=== PATIENT | female | born 1980 | race African-American/Black ===

== ENCOUNTER 2018-01-16 17:03 | Emergency (ER) | payer MEDICARE, MEDICAID ==
[2018-01-16] MEDS ORDERED: Ketorolac Tromethamine 60 MG/2 ML VIAL ONE (18:17)
[2018-01-16] MEDS ORDERED: hydrOXYzine 25 MG TAB ONE (18:17)
--- NOTE | 2018-01-16 20:09 | RAD ---
LEFT ANKLE TWO VIEWS: Comparison: 10-16-16 FINDINGS: There appears to be loosening and complicated process involving the internal fixation hardware. There is bony remodeling and periosteal reaction. Soft tissue swelling is noted. An infected joint cannot be excluded. There is presumed chronic change involving the naviculocuneiform articulation. IMPRESSION: Possible infected joint. POS: PPP
[2018-01-16 20:13] LABS: #Basophils 0.1 thou/uL (0.0-0.2); #Lymphocytes 2.3 thou/uL (1.20-3.40); #Monocytes 0.2 thou/uL (0.11-0.59); #Neutrophils 4.2 thou/uL (1.40-6.50); %Basophils 0.8 % (0.0-1.0); %Eosinophils 0.4 % (0.0-10.0); %Lymphocytes 33.4 % (21.0-51.0); %Monocytes 3.6 % (0.0-10.0); %Neutrophils 61.8 % (42.0-75.0); Hemoglobin 11.3 g/dL (12.0-16.0); Mean Corpuscular HGB CONC 31.7 g/dL (32.0-36.0); Mean Corpuscular Hemoglobin 24.7 pg (27.0-31.0); Mean Corpuscular Volume 77.9 fL (78.0-98.0); Mean Platelet Volume 5.8 fL (7.4-10.4); Platelet Count 175 thou/uL (130-400); RBC Distribution Width 18.1 % (11.5-14.5); White Blood Cell (WBC) Count 6.7 thou/uL (4.8-10.8)
== END 2018-01-16 20:41 | disposition home or self-care (01) ==
LOC: ERS 17:03
DX: F41.9 Anxiety disorder, unspecified (principal); M25.572 Pain in left ankle and joints of left foot; I10 Essential (primary) hypertension; F17.210 Nicotine dependence, cigarettes, uncomplicated; Z79.899 Other long term (current) drug therapy
CPT/HCPCS: 36415; 85025; 85652; 86140; J1885

== ENCOUNTER 2018-03-11 19:32 | Emergency (ER) | payer MEDICARE, MEDICAID ==
[2018-03-11] MEDS ORDERED: HYDROcodone/Acetaminophen 10/325 mg Tablet ONE (20:37)
== END 2018-03-11 21:28 | disposition home or self-care (01) ==
LOC: ERS 19:32
DX: G89.18 Other acute postprocedural pain (principal); M25.572 Pain in left ankle and joints of left foot; I10 Essential (primary) hypertension; G62.9 Polyneuropathy, unspecified; F41.9 Anxiety disorder, unspecified; F17.210 Nicotine dependence, cigarettes, uncomplicated
CPT/HCPCS: 99283

== ENCOUNTER 2018-12-19 00:45 | Emergency (ER) | payer MEDICARE, MEDICAID ==
[2018-12-19 01:25] LABS: #Basophils 0.1 thou/uL (0.0-0.2); #Lymphocytes 3.6 thou/uL (1.20-3.40); #Monocytes 0.4 thou/uL (0.11-0.59); #Neutrophils 5.3 thou/uL (1.40-6.50); %Basophils 0.7 % (0.0-1.0); %Eosinophils 0.3 % (0.0-10.0); %Lymphocytes 37.9 % (21.0-51.0); %Monocytes 4.2 % (0.0-10.0); %Neutrophils 56.9 % (42.0-75.0); Hemoglobin 12.3 g/dL (12.0-16.0); Mean Corpuscular HGB CONC 32.8 g/dL (32.0-36.0); Mean Corpuscular Hemoglobin 23.9 pg (27.0-31.0); Platelet Count 217 thou/uL (130-400); RBC Distribution Width 17.1 % (11.5-14.5); Red Blood Cell (RBC) Count 5.15 mill/uL (4.20-5.40); White Blood Cell (WBC) Count 9.4 thou/uL (4.8-10.8)
[2018-12-19 01:28] LABS: Acetaminophen Less than 6.0 mcg/mL (10.0-30.0); Alcohol 128 mg/dL (Less than 10); Salicylate Less than 8.0 mg/dL (15.0-30.0)
[2018-12-19 01:29] LABS: Pregnancy Test - Urine (BHCG) Negative (Negative); Pregu Control Background? CLEAR/WHITE (CLR/WHITE); Pregu Control Bar Appear? YES (CONTROL BAR); Specific Gravity 1.006 (1.002-1.036)
[2018-12-19 01:30] LABS: ALT (SGPT) 11 U/L (8-55); AST (SGOT) 16 U/L (5-34); Albumin 4.4 g/dL (3.5-5.0); Alcohol 127 mg/dL (Less than 10); Alkaline Phosphatase 38 U/L (40-150); Anion Gap 18 mmol/L (10-20); BUN (Urea Nitrogen) 10 mg/dL (7.0-18.7); Bilirubin, Total 0.2 mg/dL (0.2-1.2); CK (CPK) 136 U/L (29-168); Calc. Creatinine Clearance 0 mL/min (70-130); Calcium 9.8 mg/dL (7.8-10.44); Carbon Dioxide 17 mmol/L (22-29); Chloride 105 mmol/L (98-107); Estimated GFR-MDRD Greater than 90; Globulin 3.7 g/dL (2.4-3.5); Glucose 89 mg/dL (70-105); Protein, Total 8.1 g/dL (6.0-8.3); Sodium 136 mmol/L (136-145)
[2018-12-19 01:38] LABS: Amphetamine Not Detected (NotDetected); Barbiturates Screen Not Detected (NotDetected); Benzodiazepine Screen Detected (NotDetected); Cocaine Metabolite Screen Not Detected (NotDetected); Medtox Control Line Valid? VALID (VALID); Medtox Reader # READER 4; Methadone Not Detected (NotDetected); Methamphetamine Not Detected (NotDetected); Opiate Screen Not Detected (NotDetected); Oxycodone Screen Not Detected (NotDetected); Phencyclidine (PCP) Not Detected (NotDetected); THC/Cannabinoid Screen Not Detected (NotDetected); Tricyclic Screen Not Detected (NotDetected)
[2018-12-19 02:15] LABS: Bacteria/HPF None Seen HPF (None Seen); Bilirubin Negative (Negative); Blood, Urine Negative (Negative); Clarity Clear (Clear); Glucose, Urine (Dipstick) Normal (Negative); Leukocyte 25 Leu/uL (Negative); Nitrite Negative (Negative); Protein, Urine (Dipstick) Negative (Neg-Trace); RBC/HPF 0-3 HPF (0-3); Squamous Epithelial 0-3 HPF (0-3); Urobilinogen Normal mg/dL (Less than 2)
[2018-12-19] MEDS ORDERED: Ondansetron ODT 4 MG TAB ONE (05:09)
[2018-12-19 05:32] LABS: Acetaminophen Less than 6.0 mcg/mL (10.0-30.0); Alcohol 58 mg/dL (Less than 10); Salicylate Less than 8.0 mg/dL (15.0-30.0)
[2018-12-19] MEDS ORDERED: Acetaminophen 500 MG TAB ONE (08:10)
[2018-12-19] MEDS ORDERED: hydrOXYzine Pamoate 25 mg Capsule ONE (08:37)
== END 2018-12-19 14:00 ==
LOC: ERS 00:45
DX: T43.212A Poisoning by selective serotonin and norepinephrine reuptake inhibitors, intentional self-harm, initial encounter (principal); Z71.6 Tobacco abuse counseling; E11.40 Type 2 diabetes mellitus with diabetic neuropathy, unspecified; I10 Essential (primary) hypertension; E03.9 Hypothyroidism, unspecified; F41.9 Anxiety disorder, unspecified; F17.210 Nicotine dependence, cigarettes, uncomplicated; Z79.899 Other long term (current) drug therapy
CPT/HCPCS: 36415; 80053; 80306; 80307; 81003; 81015; 81025; 82550; 84443; 85025; 93005; 94760; Q0162; Q0177

== ENCOUNTER 2019-01-25 12:59 | Emergency (ER) | payer MEDICARE, MEDICAID ==
[~2019-01-25 12:59] MED LIST: Iopamidol 370 76% 100 ML VIAL ONE
[2019-01-25] MEDS ORDERED: Lorazepam 2 MG/ML VIAL ONE (13:57)
[2019-01-25 14:07] LABS: Pregnancy Test - Urine (BHCG) Negative (Negative); Pregu Control Background? CLEAR/WHITE (CLR/WHITE); Pregu Control Bar Appear? YES (CONTROL BAR); Specific Gravity 1.029 (1.002-1.036)
[2019-01-25 14:10] LABS: #Lymphocytes 2.2 thou/uL (1.20-3.40); #Monocytes 0.4 thou/uL (0.11-0.59); #Neutrophils 4.9 thou/uL (1.40-6.50); %Basophils 0.4 % (0.0-1.0); %Eosinophils 0.6 % (0.0-10.0); %Lymphocytes 28.8 % (21.0-51.0); %Monocytes 5.1 % (0.0-10.0); %Neutrophils 65.2 % (42.0-75.0); Hemoglobin 11.4 g/dL (12.0-16.0); Mean Corpuscular HGB CONC 32.7 g/dL (32.0-36.0); Mean Corpuscular Volume 73.3 fL (78.0-98.0); Mean Platelet Volume 7.7 fL (7.4-10.4); Platelet Count 200 thou/uL (130-400); RBC Distribution Width 17.7 % (11.5-14.5); Red Blood Cell (RBC) Count 4.75 mill/uL (4.20-5.40); White Blood Cell (WBC) Count 7.6 thou/uL (4.8-10.8)
[2019-01-25 14:14] LABS: Bilirubin Negative (Negative); Blood, Urine 2+ (Negative); Clarity Turbid (Clear); Glucose, Urine (Dipstick) Normal (Negative); Leukocyte 250 Leu/uL (Negative); Nitrite Negative (Negative); Protein, Urine (Dipstick) 30 mg/dL (Neg-Trace); Squamous Epithelial 21-50 HPF (0-3)
[2019-01-25 14:21] LABS: Amphetamine Not Detected (NotDetected); Barbiturates Screen Not Detected (NotDetected); Benzodiazepine Screen Detected (NotDetected); Cocaine Metabolite Screen Not Detected (NotDetected); Medtox Control Line Valid? VALID (VALID); Medtox Reader # READER 4; Methadone Not Detected (NotDetected); Methamphetamine Not Detected (NotDetected); Opiate Screen Detected (NotDetected); Oxycodone Screen Not Detected (NotDetected); Phencyclidine (PCP) Not Detected (NotDetected); THC/Cannabinoid Screen Not Detected (NotDetected); Tricyclic Screen Not Detected (NotDetected)
[2019-01-25 14:25] LABS: Bacteria/HPF 1+ HPF (None Seen)
[2019-01-25 14:26] LABS: Trichomonas/HPF 1+ HPF (None Seen)
[2019-01-25 14:32] LABS: ALT (SGPT) 12 U/L (8-55); AST (SGOT) 12 U/L (5-34); Acetaminophen Less than 6.0 mcg/mL (10.0-30.0); Albumin 4.3 g/dL (3.5-5.0); Alcohol Less than 10 mg/dL (Less than 10); Alkaline Phosphatase 43 U/L (40-110); Anion Gap 11 mmol/L (10-20); Anisocytosis SLIGHT = 6-15 cells (100X) (0-5/hpf); BUN (Urea Nitrogen) 9 mg/dL (7.0-18.7); Bilirubin, Total 0.3 mg/dL (0.2-1.2); Calc. Creatinine Clearance 0 mL/min (70-130); Calcium 9.5 mg/dL (7.8-10.44); Carbon Dioxide 22 mmol/L (22-29); Chloride 106 mmol/L (98-107); Elliptocytes SLIGHT = 2-5 cells (100X) (0-1/hpf); Estimated GFR-MDRD 83; Globulin 3.5 g/dL (2.4-3.5); Glucose 98 mg/dL (70-105); Hypochromia SLIGHT = 6-15 cells (100X) (0-5/hpf); MDiff Complete? YES; Microcytosis SLIGHT = 6-15 cells (100X) (0-5/hpf); Ovalocytes SLIGHT = 2-5 cells (100X) (0-1/hpf); Platelet Morphology Comment Appears Adequate; Poikilocytosis SLIGHT = 6-15 cells (100X) (0-5/hpf); Polychromasia SLIGHT = 2-3 cells (100X) (0-2/hpf); Protein, Total 7.8 g/dL (6.0-8.3); Salicylate Less than 8.0 mg/dL (15.0-30.0); Schistocytes SLIGHT = 2-5 cells (100X) (0-1/hpf); Sodium 135 mmol/L (136-145); Target Cells SLIGHT = 2-5 cells (100X) (0-1/hpf); Tear Drops SLIGHT = 2-5 cells (100X) (0-1/hpf)
--- NOTE | 2019-01-25 14:51 | CT ---
CT ANGIOGRAM THORAX WITH IV CONTRAST AND 3-D RECONSTRUCTIONS CLINICAL INDICATION: Chest pain. COMPARISON: None FINDINGS: Pulmonary arteries: No filling defects are seen in the central or segmental pulmonary arteries to sug gest pulmonary embolus. Subsegmental pulmonary arteries are not well opacified, but no gross filling defect is appreciated. Aorta: The aorta is normal in caliber without evidence of an aortic dissection. Lungs: There is dependent atelectasis bilaterally. This exam is obtained in expiratory phase of imagi ng. No pulmonary nodule, mass, or pleural effusion is seen in the lungs bilaterally. Mediastinum: There is a mildly enlarged subcarinal lymph node measuring 1.4 cm in short axis dimensio n with minimal soft tissue density seen in each hilar region which may also be related to mildly prominent lymph nodes. The heart is mildly enlarged. Thyroid gland: Tiny subcentimeter hypodense nodule inferior aspect right lobe of the thyroid gland un able to be further characterized on this exam. Osseous structures: No acute process. Chest wall: No abnormality visualized. Upper abdomen: Within normal limits for phase of imaging. IMPRESSION: 1. No CT evidence of a pulmonary embolus. 2. Prominent subcarinal and hilar lymph nodes which are overall nonspecific. 3. Tiny subcentimeter hypodense nodule inferior aspect right lobe of thyroid gland which cannot be fu rther characterized on this CT exam. 4. Cardiomegaly.
[2019-01-25] MEDS ORDERED: Ibuprofen 800 MG TAB ONE (15:51)
== END 2019-01-25 17:50 | disposition home or self-care (01) ==
LOC: ERS 12:59
DX: R07.89 Other chest pain (principal); F41.9 Anxiety disorder, unspecified; I10 Essential (primary) hypertension; E03.9 Hypothyroidism, unspecified; E78.5 Hyperlipidemia, unspecified; F17.210 Nicotine dependence, cigarettes, uncomplicated
CPT/HCPCS: 71275; 80053; 80306; 80307; 81003; 81015; 81025; 82550; 84443; 84484; 85025; 93005; 96374; J2060; Q9967

== ENCOUNTER 2023-02-26 04:16 | Emergency (ER) | payer OTHER, MEDICAID ==
[2023-02-26] MEDS ORDERED: Ondansetron PF 4 MG/2 ML Vial ONE (04:56)
[2023-02-26] MEDS ORDERED: Morphine 4 MG/ML VIAL ONE ×3 (04:56→12:06)
[2023-02-26 05:01] LABS: #Monocytes 0.7 thou/uL (0.11-0.59); #Neutrophils 4.3 thou/uL (1.40-6.50); %Basophils 0.3 % (0.0-1.0); %Eosinophils 0.1 % (0.0-10.0); %Lymphocytes 28.8 % (21.0-51.0); %Monocytes 9.6 % (0.0-10.0); %Neutrophils 60.9 % (42.0-75.0); Hemoglobin 10.1 g/dL (12.0-16.0); Mean Corpuscular HGB CONC 33.7 g/dL (32.0-36.0); Mean Corpuscular Hemoglobin 25.4 pg (27.0-31.0); Mean Corpuscular Volume 75.4 fl (78.0-98.0); Platelet Count 233 10x3/uL (130-400); RBC Distribution Width 20.1 % (11.5-14.5); Red Blood Cell (RBC) Count 3.98 mill/uL (4.20-5.40)
[2023-02-26 05:26] LABS: ALT (SGPT) 27 U/L (8-55); AST (SGOT) 40 U/L (5-34); Albumin 3.1 g/dL (3.5-5.0); Alkaline Phosphatase 78 U/L (40-110); Anion Gap 13 mmol/L (10-20); BUN (Urea Nitrogen) 4 mg/dL (7.0-18.7); Bilirubin, Total 0.3 mg/dL (0.2-1.2); Calc. Creatinine Clearance 0 mL/min (70-130); Calcium 8.1 mg/dL (7.8-10.44); Carbon Dioxide 24 mmol/L (22-29); Chloride 107 mmol/L (98-107); Estimated GFR 113; Globulin 3.5 g/dL (2.4-3.5); Glucose 77 mg/dL (70-105); Potassium 4.3 mmol/L (3.5-5.1); Protein, Total 6.6 g/dL (6.0-8.3); Sodium 140 mmol/L (136-145)
[2023-02-26] MEDS ORDERED: fentaNYL 50 mcg/mL 1 mL Vial ONE ×2 (05:28→06:30)
[2023-02-26] MEDS ORDERED: Piperacillin/Tazobactam 4.5 GM VIAL ONE (06:53)
[2023-02-26] MEDS ORDERED: Sodium Chloride 0.9% 100 ML ONE (06:54)
[2023-02-26] MEDS ORDERED: Vancomycin 1 GM/200 ML (FROZEN) BAG ONE (07:10)
[2023-02-26] MEDS ORDERED: HYDROmorphone 0.5 MG/0.5 ML SYRINGE ONE (13:17)
[2023-02-26] MEDS ORDERED: Iopamidol 370 76% 100 ML VIAL ONE (15:49)
== END 2023-02-26 14:10 | disposition home or self-care (01) ==
LOC: ERS 04:16
DX: L76.34 Postprocedural seroma of skin and subcutaneous tissue following other procedure (principal); I10 Essential (primary) hypertension; F17.210 Nicotine dependence, cigarettes, uncomplicated
CPT/HCPCS: 74177; 76705; 80053; 83605; 85025; 87040; J3010; J3370; 96365; 96367; 96375; 96376; J1170; J2270; J2405; J2543; J3490; Q9967

== ENCOUNTER 2023-10-27 20:15 | Emergency (ER) | payer OTHER, MEDICAID ==
[2023-10-27] MEDS ORDERED: hydrOXYzine 10 MG TAB PO SCH (21:30)
[2023-10-27] MEDS ORDERED: Orphenadrine Citrate 60 MG/2 ML VIAL ONE (22:13)
== END 2023-10-27 21:51 | disposition home or self-care (01) ==
LOC: ERS 20:15
DX: S06.0X0A Concussion without loss of consciousness, initial encounter (principal); M25.561 Pain in right knee; I10 Essential (primary) hypertension; E03.9 Hypothyroidism, unspecified; F17.210 Nicotine dependence, cigarettes, uncomplicated; W19.XXXA Unspecified fall, initial encounter
CPT/HCPCS: 70450; 72125; 73080; J2360; 12011; 96372